=== PATIENT | male | born 1955 | race Caucasian/White ===

== ENCOUNTER 2021-04-18 18:50 | Inpatient (IN) | payer MEDICARE, MEDICAID ==
[~2021-04-18] VITALS: Ht 170.2 cm; Wt 102.1 kg
[~2021-04-18 18:50] MED LIST: ALPRAZOLAM 0.50.5 M1 PO; GLUCOPHAGE500 MG PO; GLYBURIDE 5 MG T5 M1 PO; HYDROCODON-ACE1 EAC7 PO; LAMICTAL XR50 MG PO; LISINOPRIL10 MG PO; NAPROSYN500 MG PO; SIMVASTATIN20 MG PO
[2021-04-18 18:55] VITALS: BP 145/75
[2021-04-18] MEDS ORDERED: ASA81BEC PO (19:00)
[2021-04-18] MEDS ORDERED: LEVOTHYROXINE75 MC1 PO (19:00)
[2021-04-18] MEDS ORDERED: BYSTOLIC10 MG PO (19:01)
[2021-04-18] MEDS ORDERED: MINIVELLE1 EAC1 PO (19:01)
[2021-04-18] MEDS ORDERED: FLUOXETINE HCL10 M1 PO (19:02)
[2021-04-18] MEDS ORDERED: PROZAC20 M1 PO (19:02)
[2021-04-18] MEDS ORDERED: NORVASC5 MG PO (19:02)
[2021-04-18] MEDS ORDERED: COLACE100 MG PO (19:02)
[2021-04-18] MEDS ORDERED: NORCO5 PO (19:03)
[2021-04-18] MEDS ORDERED: LAMOTRIGINE250 MG PO (19:03)
[2021-04-18] MEDS ORDERED: OMEPRAZOLE 20 M20 M1 PO (19:03)
[2021-04-18] MEDS ORDERED: BENZTROPINE MES1 MG PO (19:04)
[2021-04-18] MEDS ORDERED: SEROQUEL 100 M100 M1 PO (19:04)
[2021-04-18] MEDS ORDERED: ATIVAN0.5 M1 PO (19:04)
[2021-04-18] MEDS ORDERED: ARICEPT10 M1 PO (19:05)
[2021-04-18] MEDS ORDERED: LIPITOR 20 MG T20 M1 PO (19:05)
[2021-04-18] MEDS ORDERED: DESYREL150 MG PO (19:05)
[2021-04-18] MEDS ORDERED: ABILIFY 5 MG TAB5 MG PO (19:06)
[2021-04-18 19:29] LABS: ABSOLUTE EOSINOPHILS 0.3 thou/uL (0.0-0.7); ABSOLUTE MONOCYTES 0.6 thou/uL (0.0-1.2); ABSOLUTE NEUTROPHILS 4.5 thou/uL (1.6-8.1); BASOPHILS 0.6 %; HEMATOCRIT 40.9 % (42.0-52.0); HEMOGLOBIN 13.8 gm/dL (14.0-18.0); LYMPHOCYTES 16.2 %; MCH 29.4 pg (26.0-34.0); MCHC 33.7 g/dL (28.0-37.0); MCV 87.1 fL (80.0-100.0); MONOCYTES 9.1 %; MPV 6.9 fl. (7.2-11.1); NUCLEATED RBCS 0 /100WBC; PLATELET COUNT* 138 thou/uL (150-400); POLYS 70.1 %; RDW-CV 14.5 % (10.5-14.5); WBC 6.4 thou/uL (4.0-11.0)
[2021-04-18] MEDS ORDERED: CYANOCOBAL1000 MCG/1 IM (19:36)
[2021-04-18] MEDS ORDERED: MILK OF MA400 MG/5 M PO (19:37)
[2021-04-18] MEDS ORDERED: TYLENOL325 MG PO (19:37)
[2021-04-18] MEDS ORDERED: MYLANTA COAT-C355 ML PO (19:37)
[2021-04-18] MEDS ORDERED: TRESIBA100 UNIT/1 SUBQ (19:38)
[2021-04-18] MEDS ORDERED: BIOFREEZE118 ML TOP (19:38)
[2021-04-18 19:39] LABS: CALCIUM 9.2 mg/dL (8.5-10.1); CREATININE 1.2 mg/dL (0.6-1.3); POTASSIUM 4.4 mmol/L (3.5-5.1)
[2021-04-18] MEDS ORDERED: NOVOLOG100 UNIT/1 SUBQ (19:39)
[2021-04-18 19:44] LABS: ALBUMIN 3.6 g/dL (3.4-5.0); TOTAL BILIRUBIN 0.6 mg/dL (<0.1-1.0); TOTAL PROTEIN 7.5 g/dL (6.4-8.2)
[2021-04-18 19:48] LABS: URINE BILIRUBIN NEGATIVE (Negative); URINE BLOOD TRACE (Negative); URINE CLARITY CLEAR; URINE COLOR YELLOW; URINE GLUCOSE-RANDOM NEGATIVE (Negative); URINE KETONES NEGATIVE (Negative); URINE LEUKOCYTES 2+ (Negative); URINE NITRITE NEGATIVE (Negative); URINE PROTEIN NEGATIVE (Negative); URINE SPECIFIC GRAVITY 1.015 (1.005-1.030)
[2021-04-18 19:59] LABS: CASTS None Seen /LPF (None Seen); CRYSTALS None Seen /LPF (None Seen); SQUAMOUS 0-3 Few /LPF (0-3); URINE RBC 0-2 Rare /HPF (0-2); URINE WBC >25 Many /HPF (0-5); WBC CLUMPS Few (None Seen)
[2021-04-18 22:27] VITALS: BP 148/68
[2021-04-19 02:00] VITALS: BP 138/62
[2021-04-19 06:00] VITALS: BP 132/61
--- NOTE | 2021-04-19 09:49 | EKG ---
[place] [address] ELECTROCARDIOGRAM REPORT Name: MONICA HANSEN Room: [place] [address] ADM IN [facility]#: [id number] Admission: 04/19/21 Attend Phys: Tani Gunter Discharge: Date of : 51 Date of Service: 04/18/21 190 Report #: [id number] THIS REPORT FOR: //name// [facility] ED Test Date: 2021-04-18 Test Time: 19:03:22 Pat Name: MONICA HANSEN Department: Room: [facility] Gender: [place] [employer] Agent: GAMALIEL : 1955 Requested By: Shashank Gandhi Order Number: [id number] MD: Mahin Jara Measurements Intervals [place] Rate: 68 P: 46 [place]: 192 QRS: -26 QRSD: 78 T: 30 QT: 456 QTc: 486 Interpretive Statements Sinus rhythm Left ventricular hypertrophy Inferior infarct, old Anterior infarct, old No previous ECG available for comparison Electronically Signed On 04-19-2021 9:49:35 CDT by Mahin Jara [email or web address] <ELECTRONICALLY SIGNED> By: Mahin Jara MD, [facility] 04/19/21 0949 [id number] Mahin Jara MD, [facility] /EPI
[2021-04-19 14:00] VITALS: BP 168/80
[2021-04-19 14:51] VITALS: BP 168/80
[2021-04-19 16:00] VITALS: BP 110/65
[2021-04-19 20:00] VITALS: BP 140/66
[2021-04-20] VITALS (7 sets, daily range): BP systolic 116–146; BP diastolic 52–73
[2021-04-20 05:17] LABS: HEMATOCRIT 38.3 % (42.0-52.0); HEMOGLOBIN 12.9 gm/dL (14.0-18.0); MCH 29.3 pg (26.0-34.0); MCHC 33.7 g/dL (28.0-37.0); MPV 7.8 fl. (7.2-11.1); RBC 4.4 mil/uL (4.50-6.00); RDW-CV 14.3 % (10.5-14.5); WBC 6.1 thou/uL (4.0-11.0)
[2021-04-20 05:32] LABS: CALCIUM 8.9 mg/dL (8.5-10.1); CREATININE 1.1 mg/dL (0.6-1.3); POTASSIUM 3.8 mmol/L (3.5-5.1)
--- NOTE | 2021-04-20 09:27 | EKG ---
[place] [address] ELECTROCARDIOGRAM REPORT Name: MONICA HANSEN Room: [address] ADM IN [facility].#: [id number] Admission: 04/19/21 Attend Phys: Tani Gunter Discharge: Date of : 51 Date of Service: 04/20/21 0853 Report #: [id number] THIS REPORT FOR: //name// [facility] Test Date: 2021-04-20 Test Time: 08:53:01 Pat Name: MONICA HANSEN Department: Room: [facility] Gender: M Filing Or Registry Clerk: : 1955 Requested By: Rufina Allen Order Number: [id number] Reading MD: Mahin Jara Measurements Intervals [place] Rate: 58 P: 18 [place]: 174 QRS: -13 QRSD: 88 T: 3 QT: 432 QTc: 425 Interpretive Statements Sinus rhythm Left ventricular hypertrophy Borderline T abnormalities, inferior leads Baseline wander in lead(s) V1 Compared to ECG 04/18/2021 19:03:22 rate has slowed Electronically Signed On 04-20-2021 9:27:07 CDT by Mahin Jara [email or web address] <ELECTRONICALLY SIGNED> By: Mahin Jara MD, [facility] 04/20/21 0927 0853 [id number] Mahin Jara MD, [facility] /EPI
[2021-04-20 22:06] LABS: GLYCOHEMOGLOBIN (HGB A1C) 5.4 % (4.8-5.6)
[2021-04-21 04:00] VITALS: BP 143/61
[2021-04-21 08:00] VITALS: BP 103/64
[2021-04-21] MEDS ORDERED: CEFUROXIME500 MG PO (11:03)
[2021-04-21 11:59] VITALS: BP 150/62
[2021-04-21 16:19] VITALS: BP 110/59
[2021-04-21 20:00] VITALS: BP 121/57
[2021-04-21 23:49] VITALS: BP 145/63
[2021-04-22 07:40] VITALS: BP 141/69
[2021-04-22 09:30] VITALS: BP 141/69
== END 2021-04-22 13:30 | DRG 689 ==
LOC: M.ERS 18:50 → M.TBA-ER 22:33 → M.2W 04-19 08:18 → M.ORTHSURG 04-21 23:05
PROVIDERS: Emergency Medicine; Internal Medicine; ADMIT Internal Medicine; ATTEND Internal Medicine
DX: N30.00 Acute cystitis without hematuria (principal); G93.41 Metabolic encephalopathy; J98.11 Atelectasis; R19.00 Intra-abdominal and pelvic swelling, mass and lump, unspecified site; E78.5 Hyperlipidemia, unspecified; I10 Essential (primary) hypertension; E11.9 Type 2 diabetes mellitus without complications; K59.00 Constipation, unspecified; Z20.822 Contact with and (suspected) exposure to COVID-19; B96.4 Proteus (mirabilis) (morganii) as the cause of diseases classified elsewhere; Z79.4 Long term (current) use of insulin; Z87.442 Personal history of urinary calculi; Z79.82 Long term (current) use of aspirin; Z79.899 Other long term (current) drug therapy